=== PATIENT | male | born 1980 | race Caucasian/White ===

== ENCOUNTER 2016-05-17 06:57 | Day surgery (SDC) | payer BC ==
[2016-05-12 14:07] VITALS: BMI 25.7
[2016-05-17] MEDS ORDERED: SUCCINYLCHOLINE CHLORIDE 200 MG/10 ML VIAL ONE (07:34)
[2016-05-17] MEDS ORDERED: PROPOFOL 20 ML ONE ×2 (07:34→09:48)
[2016-05-17] MEDS ORDERED: THROMBIN (BOVINE) 5,000 UNIT VIAL TP ONE ×2 (07:35→09:51)
[2016-05-17] MEDS ORDERED: methylPREDNISolone ACET (DEPO) 40 MG/1 ML VIAL ONE (07:35)
[2016-05-17] MEDS ORDERED: BUPIVACAINE HCL/PF 2.5 MG/ML - 30 ML VIAL IJ ONE (07:35)
[2016-05-17] MEDS ORDERED: LIDOCAINE 1%-EPI 1:100,000 30 ML MDV IJ ONE (07:35)
[2016-05-17] MEDS ORDERED: GUM MASTIC/STORAX/MSAL/ALCOHOL 1 DRP DROPSBTL MC ONE (07:35)
[2016-05-17] MEDS ORDERED: MIDAZOLAM HCL 2 MG/2 ML SINGLE DOSE VIAL ONE ×2 (07:36→08:40)
[2016-05-17] MEDS ORDERED: ceFAZolin SODIUM 1 GM VIAL ONE (07:36)
[2016-05-17] MEDS ORDERED: oxyCODONE HCL 10 MG SUSTAINED ACTING TABLET PO STA (07:51)
--- NOTE | 2016-05-17 07:51 | HP ---
History & Physical Update - History History: Change (see notes) (Patient's surgery was previously rescheduled due to low hgb (8.1 on 04/26). Patient recieved blood transfusion this past Tuesday ( 05/14). Patient denies dizziness/SOB.) - Physical Physical: No Change - Assessment Assessment: No Change - Plan Plan: No Change (35 yo M presents for planned lumbar laminectomy L4-[address] Chan. History and physical present in paper chart. Patient s/p blood transfusion 05/14, follow-up cbc.)
[2016-05-17 08:06] LABS: MCH 23.5 pg (25.7-33.7); MCHC 32.9 g/dl (32.0-35.9); MEAN CELL VOLUME 71.5 fl (80-96); MEAN PLT VOLUME 7.7 fl (7.5-11.1); PLATELET COUNT 158 K/MM3 (134-434); RDW 24.8 % (11.9-15.9); WHITE BLOOD COUNT 3.3 K/mm3 (4.0-10.0)
[2016-05-17] MEDS ORDERED: BUPIVACAINE HCL/PF 0.5% (5MG/ML) 10 ML VIAL ONE (08:37)
[2016-05-17] MEDS ORDERED: ROCURONIUM BROMIDE 50 MG/5 ML VIAL ONE (09:13)
[2016-05-17 09:42] LABS: ANISOCYTOSIS 2+; HYPOCHROMIA 1+; MICROCYTOSIS 1+
[2016-05-17] MEDS ORDERED: LACTATED RINGERS SOLUTION 1,000 ML IV SCH (09:45)
[2016-05-17] MEDS ORDERED: methylPREDNISolone ACET (DEPO) 40 MG/1 ML VIAL IM ONE (09:50)
[2016-05-17] MEDS ORDERED: LIDOCAINE 1%/EPI 1:100000 (50 ML MULTI DOSE VIAL) INF ONE (09:50)
[2016-05-17] MEDS ORDERED: BUPIVACAINE HCL/PF 0.25% (2.5MG/ML) 10 ML VIAL IJ ONE (09:51)
--- NOTE | 2016-05-17 10:47 | OP ---
Operative Note - Note: Operative Date: 05/17/16 Pre-Operative Diagnosis: spinal stenosis, lumbar radiculopathy Operation: lumbar laminectomy L4-5 Post-Operative Diagnosis: Same as Pre-op Surgeon: Popeye Chan Packer: Rochelle Velazquez Anesthesia: General Estimated Blood Loss (mls): 30 Fluid Volume Replaced (mls): 110 Operative Report Dictated: Yes
--- NOTE | 2016-05-17 10:48 | SURG ---
Surgery Reconcilement Clerk Note Reconcilement Clerk: Rochelle Velazquez PA-C Date of Service: 05/17/16 Diagnosis: spinal stenosis, lumbar radiculopathy Procedure: lumbar laminectomy L4-5 I was present for the entirety of the operative procedure. For further detail, please refer to operative report. Visit type - Case Type Case Type: Scheduled Admission - Emergency Emergency Visit: No - New patient This patient is new to me today: Yes Date on this admission: 05/17/16 - Critical Care Critical Care patient: No
[2016-05-17] MEDS ORDERED: ONDANSETRON 4 MG/2 ML VIAL IVPUSH PRN (11:28)
[2016-05-17 11:55] VITALS: TEMP 98.9
[2016-05-17] MEDS ORDERED: oxyCODONE HCL 5 MG TABLET ONE ×2 (12:00→12:35)
[2016-05-17] MEDS: oxyCODONE HCL 5 MG TABLET PO PRN ×2 (12:00→12:30)
[2016-05-17 14:28] VITALS: BP 120/72; PULSE 72
--- NOTE | 2016-05-17 20:23 | OP ---
DATE OF OPERATION: 05/17/2016 PREOPERATIVE DIAGNOSIS: Spinal stenosis, L4-5. POSTOPERATIVE DIAGNOSIS: Spinal stenosis, L4-5. PROCEDURE PERFORMED: Laminectomy, L4-5. SURGEON: Popeye Chan M.D. SAND DIGGER: COOKIE Henry ESTIMATED BLOOD LOSS: 6 mL. INTRAVENOUS FLUIDS: Per anesthesia. COMPLICATIONS: There were none. DISPOSITION: Patient brought to the PACU in stable condition. INDICATION FOR SURGERY: The patient is a 35-year-old gent who has been suffering from pain from his back down his leg. X-rays and MRI were completed, which noted he has spinal stenosis at L4-5. He had gone through an exhaustive course of treatment for this which included medications, physical therapy, as well as injections. Unfortunately, the pain continued to persist in spite of all this. At this point, risks, benefits, and alternatives were discussed and the patient consented to surgery. OPERATIVE NOTE: Patient is brought to the operating room by the anesthesia staff. After appropriate patient identification is performed, general anesthesia was administered. Appropriate anesthetic lines were placed. SCDs were placed on the patient. The patient was positioned prone onto the Manny frame with all areas of bony prominences well padded at this time. Two needles were placed into his back to drew off the L4-5 segment, and x-ray is taken to confirm this is correct. Needle was removed, and 10 mL of lidocaine with epinephrine was injected into his back at this time. His back was prepped and draped in a sterile manner. At this point timeout was completed. An incision was made from the top of L4 down to the bottom of L5. Dissection was carried down to the fascia. Fascia was then split open at this time, and appropriate retractors were then placed in. Then a spinal needle was placed onto the L4 lamina. An x-ray was taken to confirm this was correct. The needle was removed, and microscope was brought in. At this point, the interspinous ligament at L4-5 was removed. A portion of the L4 and L5 spinous process was removed, and portions of the lamina were removed. The segment identified, it was removed. A complete decompression was performed such that by the end of the procedure the L5 nerve roots appear to be well decompressed. All bleeding was well controlled at this time. Steroids were placed over the nerve root, Floseal was placed over that. The fascia was closed with a number 1 Vicryl suture. The subcutaneous tissue was closed with 2-0 Vicryl suture. Skin was closed with 3-0 Monocryl suture. Dermabond was applied. Steri-Strips were applied. Sterile dressing was applied. Patient was placed supine on OR bed, extubated in the OR, and brought to the PACU in stable condition. POPEYE CHAN M.D. [id number] MTDD
== END 2016-05-17 14:49 | disposition home or self-care (01) ==
LOC: FASU 06:57
PROVIDERS: ATTEND Orthopaedic Surgery Orthopaedic Surgery of the Spine
PROC: 01NB0ZZ Release Lumbar Nerve, Open Approach (ICD-10-PCS; principal; 2016-05-17 09:21)
DX: M48.06 Spinal stenosis, lumbar region (principal)
CPT/HCPCS: 36415; 72100-TC; 85027; 94760